=== PATIENT | female | born 1950 | race Caucasian/White ===

== ENCOUNTER 2016-11-06 06:49 | Day surgery (SDC) | payer MEDICARE ==
[~2016-11-06] VITALS: Ht 165.1 cm; Wt 83.9 kg
[~2016-11-06 06:49] MED LIST: AMLODIPINE5 MG PO; AMOXICILLIN500 MG OR; AMOXICILLIN500 MG PO; AMOXICILLIN875 MG PO; ASPIRIN EC325 MG PO; BACTRIM DS1 TAB OR; CIPRO500 MG OR; CLONIDINE0.1 MG OR; CLONIDINE0.2 MG; COREG12.5 MG PO; ECPIRIN325 MG OR; FAMCICLOVIR500 MG PO; FERROUS SULF325 M1 PO; GLIPIZIDE ER10 MG OR; GLUCOPHAGE1000 MG OR; GLUCOPHAGE500 MG OR; GLUCOTROL EXTE2.5 M1 PO; HYDRALAZINE10 M1 OR; HYDROCHLOROT25 MG PO; HYZAAR1 TA1 OR; IMODIUM A-D2 MG OR; IRON18 M1 OR; IRON325 M1 PO; IRON50 MG OR; LISINOP/HCTZ1 TA1 PO; LISINOPRIL10 MG PO; LISINOPRIL2.5 MG PO; LOPRESSOR 550 MG/TAB PO; LOPRESSOR100 MG OR; LORTAB 5; LORTAB 5 PO; MECLIZINE25 MG OR; MEDDOSEPAK PO; METFORMIN1000 MG PO; METFORMIN500 M1 OR; METFORMIN500 MG PO; METOPROL TAR25 M1 PO; METOPROLOL SUCC50 MG PO; METOPROLOL50 MG OR; MOTRIN600 MG OR; NAPROSYN500 MG OR; NAPROSYN500 MG PO; PEPTO BISMOL30 ML OR; PROMETHAZINE25 M1 RE; ROBITUSSIN AC10 ML PO; RONDEC-DM OR; SIMVASTATIN40 MG PO; TYLENOL500 MG OR; ULTRAM50 MG PO; VICODIN1 TA1 PO; ZITHROMAX250 MG PO
[2016-11-06 09:23] VITALS: BP 121/70
== END 2016-11-06 09:34 | disposition home or self-care (01) ==
LOC: ENDO 06:49
PROVIDERS: ATTEND Surgery
PROC: 0DJD8ZZ Inspection of Lower Intestinal Tract, Via Natural or Artificial Opening Endoscopic (ICD-10-PCS; principal; 2016-11-06)
DX: Z12.11 Encounter for screening for malignant neoplasm of colon (principal); K57.30 Diverticulosis of large intestine without perforation or abscess without bleeding; I10 Essential (primary) hypertension; E11.9 Type 2 diabetes mellitus without complications; Z86.73 Personal history of transient ischemic attack (TIA), and cerebral infarction without residual deficits

== ENCOUNTER 2017-05-31 20:22 | Emergency (ER) | payer MEDICARE ==
[~2017-05-31] VITALS: Ht 165.1 cm; Wt 97.0 kg
[2017-05-31 21:25] LABS: HEMATOCRIT 34.6 % (37.0-47.0); HEMOGLOBIN 10.9 g/dl (12.0-16.0); IMMATURE GRANULOCYTES 0.3 % (0.0-1.0); MEAN CELL VOLUME 82.4 fL CALC (80.0-100.0); MEAN CORPUSCULAR HGB CONC 31.5 g/L CALC (32.0-36.0); NEUT# 10.95 thou/uL (2.00-7.15); RED BLOOD COUNT 4.2 mill/uL (4.20-5.60); RED CELL DISTRI WIDTH 15.2 % (11.5-15.5)
[2017-05-31 21:27] LABS: ALBUMIN 4.4 g/dL (3.2-5.0); BILIRUBIN, TOTAL 0.9 mg/dL (0.0-1.4); CALCIUM 9.9 mg/dL (8.4-10.2); CREATININE 1.5 mg/dL (0.5-1.0); TOTAL PROTEIN 8.2 g/dL (6.3-8.2)
[2017-05-31 23:18] LABS: URINE BILIRUBIN - DIPSTICK NEGATIVE (NEGATIVE); URINE BLOOD DIPSTICK SMALL (NEGATIVE); URINE CLARITY SLIGHT CLOUDY; URINE COLOR YELLOW; URINE GLUCOSE - DIPSTICK NEGATIVE (NEGATIVE); URINE KETONE NEGATIVE (NEGATIVE); URINE LEUK ESTERASE TRACE (NEGATIVE); URINE NITRITE - DIPSTICK NEGATIVE (Negative); URINE PH 5.5 (4.5-8.0); URINE PROTEIN - DIPSTICK NEGATIVE (NEG-TRACE); URINE SPECIFIC GRAVITY 1.015; URINE UROBILINOGEN - DIPSTICK 0.2 E.U./dL (0.2)
[2017-05-31 23:25] LABS: URINE BACTERIA FEW hpf; URINE SQUAMOUS EPITHELIAL CELL FEW EPI/hpf (0-FEW)
[2017-05-31] MEDS ORDERED: PREVACID30 M1 PO (23:43)
[2017-05-31] MEDS ORDERED: ZOFRAN ODT4 MG PO (23:43)
[2017-05-31] MEDS ORDERED: CIPROFLOXACN500 MG PO (23:43)
[2017-06-01 00:10] VITALS: BP 154/78
== END 2017-06-01 00:27 | disposition home or self-care (01) ==
LOC: ED 20:22
PROVIDERS: Emergency Medicine
DX: R10.13 Epigastric pain (principal); N39.0 Urinary tract infection, site not specified; K29.70 Gastritis, unspecified, without bleeding; R11.2 Nausea with vomiting, unspecified; R50.9 Fever, unspecified; I10 Essential (primary) hypertension; Z86.73 Personal history of transient ischemic attack (TIA), and cerebral infarction without residual deficits
CPT/HCPCS: S0164

== ENCOUNTER → 2018-05-27 | Outpatient (REF) | payer MEDICARE, MEDICAID ==
[~2018-05-27] MED LIST changes: +CIPROFLOXACN500 MG PO; +PREVACID30 M1 PO; +ZOFRAN ODT4 MG PO
[2018-05-27 09:55] LABS: HEMATOCRIT 34.6 % (37.0-47.0); MEAN CELL VOLUME 91.3 fL CALC (80.0-100.0); MEAN CORPUSCULAR HGB CONC 31.8 g/L CALC (32.0-36.0); RED BLOOD COUNT 3.79 mill/uL (4.20-5.60); RED CELL DISTRI WIDTH 13.6 % (11.5-15.5)
[2018-05-27 10:22] LABS: CREATININE 1.4 mg/dL (0.5-1.0); POTASSIUM 4.7 mmol/l (3.5-5.1)
== END | disposition home or self-care (01) ==
LOC: LAB 09:04
PROVIDERS: ATTEND Internal Medicine
DX: E86.0 Dehydration (principal); R42 Dizziness and giddiness

== ENCOUNTER 2018-08-10 20:27 | Observation (INO) | payer MEDICARE, MEDICAID ==
[~2018-08-10] VITALS: Ht 165.1 cm; Wt 96.4 kg
--- NOTE | 2018-08-10 20:47 | NUR ---
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 W/P/D SKIN CLEAR BILAT BREATH SOUNDS.NO N/V NO SWEATS.
[2018-08-10 20:56] LABS: HEMATOCRIT 40.6 % (37.0-47.0); IMMATURE GRANULOCYTES 0.3 % (0.0-5.0); MEAN CELL VOLUME 88.8 fL CALC (80.0-100.0); MEAN CORPUSCULAR HGB 28.4 pG CALC (26.0-32.0); NEUT# 6.72 thou/uL (2.00-7.15); RED BLOOD COUNT 4.57 mill/uL (4.20-5.60); RED CELL DISTRI WIDTH 13.9 % (11.5-15.5)
[2018-08-10] MEDS ORDERED: METOPROL TAR100 MG PO (21:02)
[2018-08-10] MEDS ORDERED: ELIQUIS5 MG PO (21:03)
[2018-08-10] MEDS ORDERED: TRULICITY1.5 MG/0.5 IM (21:05)
[2018-08-10] MEDS ORDERED: JANUVIA50 MG PO (21:05)
[2018-08-10] MEDS ORDERED: GABAPENTIN300 M2 PO (21:06)
[2018-08-10 21:14] LABS: ALBUMIN 4.8 g/dL (3.2-5.0); ALKALINE PHOSPHATASE 84 u/l (38-126); AMYLASE 87 u/l (30-110); ANION GAP 17 (6-22 (CALC)); BILIRUBIN, TOTAL 0.6 mg/dL (0.0-1.4); BUN 18 mg/dL (8-23); BUN/CREATININE RATIO 14 (12-20 (CALC)); CARBON DIOXIDE 24 mmol/l (22-30); CHLORIDE 105 mmol/l (95-108); CREATININE 1.2 mg/dL (0.5-1.0); GFR 45 ML/MIN (>=60 (CALC)); GFR FOR AFR.AMER. 54 ML/MIN (>=60 (CALC)); LIPASE 221 u/l (23-300); POTASSIUM 3.9 mmol/l (3.5-5.1); SGOT/AST 25 u/l (9-36); SODIUM 143 mmol/l (137-146); TOTAL PROTEIN 9.2 g/dL (6.3-8.2)
[2018-08-10 21:15] LABS: URINE BILIRUBIN - DIPSTICK NEGATIVE (NEGATIVE); URINE BLOOD DIPSTICK NEGATIVE (NEGATIVE); URINE CLARITY CLEAR; URINE COLOR YELLOW; URINE GLUCOSE - DIPSTICK NEGATIVE (NEGATIVE); URINE KETONE NEGATIVE (NEGATIVE); URINE LEUK ESTERASE TRACE (Negative); URINE NITRITE - DIPSTICK NEGATIVE (Negative); URINE PH 6.5 (4.5-8.0); URINE PROTEIN - DIPSTICK 100 mg/dL (NEG-TRACE); URINE SPECIFIC GRAVITY 1.015; URINE UROBILINOGEN - DIPSTICK 0.2 E.U./dL (0.2)
[2018-08-10 21:22] LABS: URINE RBC 0-2 RBC/hpf (0-5); URINE SQUAMOUS EPITHELIAL CELL FEW EPI/hpf (0-FEW)
[2018-08-10 21:27] LABS: MYOGLOBIN 43 ng/mL (0 - 62)
--- NOTE | 2018-08-10 21:31 | NUR ---
PT SUDDENLY REVERTS TO A FIB RHYTHM RATE IN THE UPPER 130'S DR Janine CASTILLO
--- NOTE | 2018-08-10 21:54 | NUR ---
2ND REPEAT DOSE CARDIZEM 10MG IVP PER VO DR Mehta GIVEN FOR HR 137 BPM A FIB
--- NOTE | 2018-08-10 22:30 | NUR ---
W/P/D SKIN HR 115 PT IS DOZING IN THE BED
--- NOTE | 2018-08-10 23:06 | NUR ---
PHONE REPOPRT TO NURSE MCMANUS ON MS
[2018-08-10 23:12] VITALS: BP 130/75
--- NOTE | 2018-08-10 23:12 | NUR ---
PT TO FLOOR VIA STRETCHER AND WET INSPECTOR OPTICAL GLASS ESCORT IN STABLE CONDITION
--- NOTE | 2018-08-11 00:04 | NUR ---
PATIENT ADMITTED FROM ER VIA STRETCHER WITH STAFF IN ATTENDANCE. PATIENT MIN ASSIST FROM STRETCHER TO STANDING SCALE AND THEN TO BED. PATIENT IS AWAKE ALERT AND ORIENTEDX3. PATIENT IS BEING ADMITTED WITH CHEST PAIN, A-FIB RVR, HTN, UTI. PATIENT DENIES ANY PAIN AT THIS TIME. TELE MONITOR IN PLACE AND RECIEVED CALL FROM ALEXY MCMANUS IN ER THAT PATIENT HAS NOW CONVERTED TO SR 1ST DEGREE AV BLOCK-91. IV SITE TO LEFT WRIST INTACT AND ROCEPHIN 1 GM HAS FINISHED. IVF NS PATENT AND INFUSING ORDERED. SITE APPEARS HEALTHY AT THIS TIME. LUNGS ARE CLEAR, ABD IS SOFT WITH ACTIVE BS-LAST BM WAS 12/24 AM WITHOUT ANY DIFFICULTY. STATES THAT SHE IS VOIDING QS-ASYMPTOMATIC FOR UTI. NO BURNING, NO FREQUENCY. PATIENT PROVIDED WITH TURKEY SANDWICH AND DRINK. BS IN ER WAS 114. PATIENT WITH HX OF CVA WITH VERY SLIGHT RIGHT SIDE WEAKNESS. SLIGHT WORD FINDING DIFF AT TIMES. ORIENTED TO ROOM AND SURROUNDINGS. INSTRUCTED ON USE OF NURSE CALL LIGHT SYSTEM, TV REMOTE AND PHONE. SAFETY PRECAUTIONS REINFORCED. CALL LIGHT IN REACH. WILL CONT TO MONITOR.
[2018-08-11 00:41] VITALS: BP 129/78
--- NOTE | 2018-08-11 04:38 | NUR ---
PATIENT RESTING IN BED APPEARS SLEEPING AT THIS TIME. RESP ARE EVEN AND UNLABORED ON RA. TELE MONITOR IN PLACE AND SHOWS SR-81 1DEGREE AVBLOCK. IVF PATENT AND INFUSING RIGHT WRIST SITE AT 125CC/HR. CALL LIGHT IN REACH. WILL CONT TO MONITOR.
[2018-08-11 04:55] VITALS: BP 132/71
--- NOTE | 2018-08-11 07:05 | NUR ---
PT REPORT RECEIVED FROM JERROD CORTES. PT RESTING IN BED, NO S/S OF DISTRESS. CALL LIGHT IN REACH. WILL CONTINUE TO MONITOR.
--- NOTE | 2018-08-11 07:43 | NUR ---
PT C/O HEADACHE. DR. HERRERA CALLED. NEW ORDERS AT THIS TIME.
[2018-08-11 08:02] VITALS: BP 154/96
--- NOTE | 2018-08-11 08:04 | NUR ---
pt a/o x3. pt eyes are very red, perrla. speech is clear. resp even and unlabored. lung sounds clear. tele in place. pt c/o headache 5 out of 10 on pain scale. medicated w/ 650 tylenol po. breakfast porvided. bowel sounds active x4. strong radial pulses, weak pedal pulses. trace of edema to bilateral ankles. encouraged elevation when oob. #22 lw ns @100. site appears healthy. pt denies any further needs. poc discussed. safety precautions in place. call light in reach. will continue to monitor
--- NOTE | 2018-08-11 12:29 | NUR ---
D/C INSTRUCTIONS REVIEWED W/ PT. PT STATES UNDERSTANDING. IV REMOVED. CATHETER INTACT. PT DENIES ANY FURTHER QUESTIONS. GETTING DRESSED AT THIS TIME. DAUGHTER AT BEDSIDE.
--- NOTE | 2018-08-11 12:36 | NUR ---
Discharge instructions given. Patient verbalizes understanding of same. Discharged in stable condition via Wheelchair to Home with family. All belongings sent with pt.
== END 2018-08-11 12:36 | disposition home or self-care (01) ==
LOC: ED 20:27 → ED-I 21:16 → ED 22:43 → MS2 22:44
PROVIDERS: ADMIT Emergency Medicine; ATTEND Emergency Medicine
DX: R07.9 Chest pain, unspecified (principal); I48.0 Paroxysmal atrial fibrillation; I10 Essential (primary) hypertension; E11.9 Type 2 diabetes mellitus without complications; K21.9 Gastro-esophageal reflux disease without esophagitis; G47.33 Obstructive sleep apnea (adult) (pediatric); E78.5 Hyperlipidemia, unspecified; E03.9 Hypothyroidism, unspecified; Z79.01 Long term (current) use of anticoagulants; Z86.73 Personal history of transient ischemic attack (TIA), and cerebral infarction without residual deficits

== ENCOUNTER → 2018-10-08 | Outpatient (REF) | payer MEDICARE, MEDICAID ==
[~2018-10-08] MED LIST changes: +ELIQUIS5 MG PO; +GABAPENTIN300 M2 PO; +JANUVIA50 MG PO; +METOPROL TAR100 MG PO; +TRULICITY1.5 MG/0.5 IM
[2018-10-08 10:05] LABS: CREATININE 1.3 mg/dL (0.5-1.0)
[2018-10-08 10:24] LABS: POTASSIUM 4.8 mmol/l (3.5-5.1)
== END | disposition home or self-care (01) ==
LOC: LAB 09:16
PROVIDERS: ATTEND Nurse Practitioner Family
DX: E11.42 Type 2 diabetes mellitus with diabetic polyneuropathy (principal)

== ENCOUNTER 2020-10-04 11:17 | Observation (INO) | payer MEDICARE, MEDICAID ==
[2020-10-04] VITALS (14 sets, daily range): BP systolic 111–196; BP diastolic 56–89
[~2020-10-04] VITALS: Ht 165.1 cm; Wt 95.9 kg
[~2020-10-04 11:17] MED LIST changes: +IRON PO; +LIPITOR10 M1 PO; +LOSARTAN POTASS50 MG PO; +NEURONTIN100 MG PO; +NORVASC5 M1 PO; +PROLIA60 MG/ML SC
[2020-10-04 17:26] LABS: HEMATOCRIT 39.3 % (37.0-47.0); HEMOGLOBIN 12.4 g/dl (12.0-16.0); IMMATURE GRANULOCYTES 0.2 % (0.0-5.0); MEAN CELL VOLUME 87.9 fL CALC (80.0-100.0); MEAN CORPUSCULAR HGB 27.7 pG CALC (26.0-32.0); MEAN CORPUSCULAR HGB CONC 31.6 g/dL CAL (32.0-36.0); NEUT# 6.48 thou/uL (2.00-7.15); RED BLOOD COUNT 4.47 mill/uL (4.20-5.60); RED CELL DISTRI WIDTH 15.5 % (11.5-15.5)
[2020-10-04 17:43] LABS: ALBUMIN 4.3 g/dL (3.2-5.0); ALKALINE PHOSPHATASE 69 u/l (38-126); ANION GAP 15 (6-22 (CALC)); BUN 15 mg/dL (8-23); BUN/CREATININE RATIO 12 (12-20 (CALC)); CARBON DIOXIDE 21 mmol/l (22-30); CHLORIDE 106 mmol/l (95-108); CREATININE 1.2 mg/dL (0.5-1.0); GFR 45 ML/MIN (>=60 (CALC)); GFR FOR AFR.AMER. 54 ML/MIN (>=60 (CALC)); MAGNESIUM 1.9 mg/dL (1.6-2.3); POTASSIUM 4.1 mmol/l (3.5-5.1); SGOT/AST 26 u/l (9-36); SODIUM 138 mmol/l (137-146)
[2020-10-04 17:50] LABS: BILIRUBIN, TOTAL 0.7 mg/dL (0.0-1.4)
[2020-10-05] VITALS (11 sets, daily range): BP systolic 99–148; BP diastolic 51–80
[2020-10-05] MEDS ORDERED: METOPROLOL100 M1 PO (10:37)
== END 2020-10-05 11:10 | disposition home or self-care (01) ==
LOC: NUCMED 11:17 → STRESS 11:17 → NUCMED 13:15 → ICU 15:35
PROVIDERS: ADMIT Internal Medicine; ATTEND Internal Medicine
DX: I48.0 Paroxysmal atrial fibrillation (principal); I12.9 Hypertensive chronic kidney disease with stage 1 through stage 4 chronic kidney disease, or unspecified chronic kidney disease; E11.22 Type 2 diabetes mellitus with diabetic chronic kidney disease; N18.30 Chronic kidney disease, stage 3 unspecified; I25.10 Atherosclerotic heart disease of native coronary artery without angina pectoris; E78.5 Hyperlipidemia, unspecified; D63.1 Anemia in chronic kidney disease; G47.30 Sleep apnea, unspecified; H40.9 Unspecified glaucoma; Z86.73 Personal history of transient ischemic attack (TIA), and cerebral infarction without residual deficits; Z79.01 Long term (current) use of anticoagulants; Z20.822 Contact with and (suspected) exposure to COVID-19
CPT/HCPCS: A9502; J0706; J2785

== ENCOUNTER 2021-03-01 07:17 | Day surgery (SDC) | payer MEDICARE, MEDICAID ==
[~2021-03-01] VITALS: Ht 165.1 cm; Wt 94.8 kg
[~2021-03-01 07:17] MED LIST changes: +ALPHAGAN P0.1 % OU; +METOPROLOL100 M1 PO; +VITAMIN D1000 UNIT PO
[2021-03-01 09:21] VITALS: BP 125/56
--- NOTE | 2021-03-01 15:29 | NUR ---
CALLED PATIENT STATES DOING WELL, AT HOME RESTING, AND VOICING NO CONCERNS AT TIME OF CALL. PATIENT TO FOLLOW UP IN OFFICE TO DISCUSS BX RESULTS AND PROCEDURE FINDINGS WITH MD.
--- NOTE | 2021-03-09 09:22 | NUR ---
PER PHYSICIAN, PATIENT NOTIFED OF RESULTS FROM PROCEDURE, PATIENT AGREED WITH INFORMATION PROVIDED, VERBALIZED NO CONCERNS AT TIME OF VISIT, STATES HAS AN APPOINTMENT WITH PRIMARY CARE ON 03/13/21, WILL FOLLOW UP WITH PCP. RESULTS FORWARDED TO PCP FOR CONTINUITY OF CARE.
== END 2021-03-01 09:26 | disposition home or self-care (01) ==
LOC: ENDO 07:17 → ORM 11:00
PROVIDERS: ATTEND Surgery
PROC: 0DJD8ZZ Inspection of Lower Intestinal Tract, Via Natural or Artificial Opening Endoscopic (ICD-10-PCS; principal; 2021-03-01)
PROC: 0DB78ZX Excision of Stomach, Pylorus, Via Natural or Artificial Opening Endoscopic, Diagnostic (ICD-10-PCS; 2021-03-01)
DX: K57.31 Diverticulosis of large intestine without perforation or abscess with bleeding (principal); K64.4 Residual hemorrhoidal skin tags; K64.8 Other hemorrhoids; K29.61 Other gastritis with bleeding; K31.7 Polyp of stomach and duodenum; K50.10 Crohn's disease of large intestine without complications; K44.9 Diaphragmatic hernia without obstruction or gangrene; E11.9 Type 2 diabetes mellitus without complications; I10 Essential (primary) hypertension; Z79.84 Long term (current) use of oral hypoglycemic drugs

== ENCOUNTER 2021-11-20 10:00 | Day surgery (SDC) | payer MEDICARE, MEDICAID ==
[~2021-11-20] VITALS: Ht 165.1 cm; Wt 96.2 kg
[~2021-11-20 10:00] MED LIST changes: +DIOVAN80 MG PO; +PROTONIX20 M1 PO; +TRESIBA100 UNIT/M SC; +TRULICITY0.75 MG/0. SC
[2021-11-20] MEDS ORDERED: PERCOCET 5/321 COMBO PO (11:30)
[2021-11-20 12:49] VITALS: BP 156/66
== END 2021-11-20 12:55 | disposition home or self-care (01) ==
LOC: ORM 10:00
PROVIDERS: ATTEND Surgery
PROC: 0DJD8ZZ Inspection of Lower Intestinal Tract, Via Natural or Artificial Opening Endoscopic (ICD-10-PCS; principal; 2021-11-20)
PROC: 06BY3ZC Excision of Hemorrhoidal Plexus, Percutaneous Approach (ICD-10-PCS; 2021-11-20)
DX: K64.8 Other hemorrhoids (principal); K64.4 Residual hemorrhoidal skin tags; K57.30 Diverticulosis of large intestine without perforation or abscess without bleeding; D64.9 Anemia, unspecified; I10 Essential (primary) hypertension; E11.9 Type 2 diabetes mellitus without complications; Z86.73 Personal history of transient ischemic attack (TIA), and cerebral infarction without residual deficits; Z79.4 Long term (current) use of insulin; Z79.01 Long term (current) use of anticoagulants
CPT/HCPCS: C9290

== ENCOUNTER 2024-02-09 19:04 | Observation (INO) | payer MEDICARE ==
[2024-02-09] VITALS (8 sets, daily range): BP systolic 145–178; BP diastolic 70–91
[~2024-02-09] VITALS: Ht 165.1 cm; Wt 77.8 kg
[~2024-02-09 19:04] MED LIST changes: +CORICIDIN HBP DAY & PO; +IBUPROFEN600 MG PO; +PAXLOVID PO; +PERCOCET 5/321 COMBO PO
--- NOTE | 2024-02-09 19:10 | NUR ---
PATIENT TO TRIAGE ROOM, DAUGHTER AT BEDSIDE.
[2024-02-09] MEDS ORDERED: MOUNJARO10 MG SC (19:19)
[2024-02-09] MEDS ORDERED: JARDIANCE25 MG PO (19:20)
--- NOTE | 2024-02-09 19:27 | NUR ---
PATIENT TO ROOM 13, PRIMARY NURSE AND MD NOTIFIED OF PATIENT STATUS
[2024-02-09] MEDS ORDERED: SODIUM CHLORIDE 0.9% 1,000 ML IV ONE (19:35)
--- NOTE | 2024-02-09 19:55 | NUR ---
IV ACESSED OBTAINED LABS COLLECTED, IVF RUNNING PT CONNECTED TO CONTINUOUS MONITORING, AWAITING ALL FURTHER RESULTS, PT VOICES UNDERSTANDIMG WITH NO FURTHER QUESTIONS AT THIS TIME, PT FAMILY AT BEDSIDE.
[2024-02-09 20:07] LABS: BASO% 0.5 % (0-3); EOS% 0.8 % (0-8); HEMATOCRIT 45.5 % (37.0-47.0); HEMOGLOBIN 14.1 g/dl (12.0-16.0); IMMATURE GRANULOCYTES 0.1 % (0.0-5.0); LYMPH% 8.4 % (15-41); MEAN CORPUSCULAR HGB 26.4 pG CALC (26.0-32.0); MONO% 8.6 % (2-13); NEUT# 10.85 thou/uL (2.00-7.15); NEUT% 81.6 % (42-76); RED BLOOD COUNT 5.35 mill/uL (4.20-5.60)
[2024-02-09 20:25] LABS: ACT PARTIAL THROMBO TIME 33.6 SECONDS (20.0-32.5); INTERNATIONAL NORMALIZED RATIO 1.1 RATIO (0.7-1.3); PROTHROMBIN TIME 10.4 SECONDS (9.0-12.5)
[2024-02-09 20:32] LABS: ALBUMIN 4.3 g/dL (3.2-5.0); BILIRUBIN, TOTAL 1.5 mg/dL (0.02-1.3); CREATININE 1.5 mg/dL (0.5-1.0); TOTAL PROTEIN 8.7 g/dL (6.3-8.2)
[2024-02-09] MEDS ORDERED: Zaleplon 5 MG/CAP PO PRN (20:55)
[2024-02-09] MEDS ORDERED: ACETAMINOPHEN 325 MG/TAB PO PRN (20:55)
[2024-02-09] MEDS ORDERED: MAGNESIUM HYDROXIDE 30 ML UDC PO PRN (20:55)
--- NOTE | 2024-02-09 20:55 | NUR ---
PT UPDATED ON POC, AWAITIMNG ROOM ASSIGNMENT. PT VOICES NO COMPLAINTS OF PAIN OR DISCOMFORT.
[2024-02-09] MEDS ORDERED: hydrALAZINE HCL 20 MG/ML VIAL(1 ML) IV PRN (21:00)
[2024-02-09] MEDS ORDERED: GABAPENTIN 100 MG/CAP PO SCH (21:00)
[2024-02-09] MEDS ORDERED: PANTOPRAZOLE SODIUM Sesquihydr 40 MG/TAB PO SCH (21:00)
[2024-02-09] MEDS ORDERED: SODIUM CHLORIDE 0.9% 1,000 ML IV SCH (21:00)
--- NOTE | 2024-02-09 21:45 | NUR ---
PT MEDICATED PER MD ORDERS, PT UPDATED ON POC, AWAITING CALL BACK FROM Chanyouji TO GIVE REPORT. PT VERBALIZES UNDERSTANDING NO FURTHER QUESTIONS OR CONCERNS. VSS, CALL LIGHT WITHIN REACH.
--- NOTE | 2024-02-09 21:55 | NUR ---
PT REPORT GIVEN TO TIAGO ELDER.
--- NOTE | 2024-02-09 22:00 | NUR ---
PT TRANSPORTED TO [facility] VIA WC, NURSE/BRANCH SALES AND SERVICE REPRESENTATIVE AT BEDSIDE PT AMB TO BED VOICES APPRECIATION OF CRARE WITH NO FURTHER QUESTIONS OR CONCERS.
--- NOTE | 2024-02-09 22:02 | NUR ---
PT ARRIVED TO [facility] ROOM 261 VIA WHEELCHAIR WAS ABLE TO WALK INDEPENDENTLY WITHOUT ASSISTANCE TO BED NO DISTRESS NOTED. ASSESSMENT AND ADMISSION DONE. PT STATED LIVING ALONE. IV SITE FLUSHED WORKING PROPERLY IV FLUIDS RESTARTED AT 80ML/HR. SKIN INTACT NO EDEMA NO TELE MONITOR. LUNGS CLEAR BOWEL SOUNDS ACTIVE. PT STATED HAVING NO PAIN AT THIS TIME. NURSE WENT OVER SAFETY PRECAUTIONS AND HOW TO USE CALL LIGHT AND PLAN OF CARE. CALL LIGHT WITHIN REACH. PT STATED NOT HAVING ANY FALLS IN THE LAS T 3 MONTHS.
[2024-02-10] VITALS (7 sets, daily range): BP systolic 116–169; BP diastolic 68–94
--- NOTE | 2024-02-10 04:00 | NUR ---
PT RESTING NO DISTRESS NOTED ON EXAM. CALL LIGHT WITHIN REACH. PLAN OF CARE ONGOING.
[2024-02-10 05:51] LABS: BASO% 1.2 % (0-3); EOS% 2.7 % (0-8); HEMATOCRIT 39.9 % (37.0-47.0); HEMOGLOBIN 12.6 g/dl (12.0-16.0); IMMATURE GRANULOCYTES 0.2 % (0.0-5.0); LYMPH% 14.2 % (15-41); MEAN CELL VOLUME 84.4 fL CALC (80.0-100.0); MEAN CORPUSCULAR HGB 26.6 pG CALC (26.0-32.0); MEAN CORPUSCULAR HGB CONC 31.6 g/dL CAL (32.0-36.0); NEUT# 6.65 thou/uL (2.00-7.15); NEUT% 69.7 % (42-76); RED BLOOD COUNT 4.73 mill/uL (4.20-5.60)
[2024-02-10 06:10] LABS: BILIRUBIN, TOTAL 1.3 mg/dL (0.02-1.3); CREATININE 1.1 mg/dL (0.5-1.0)
[2024-02-10 06:11] LABS: ALBUMIN 3.2 g/dL (3.2-5.0); POTASSIUM 5.5 mmol/l (3.5-5.1); TOTAL PROTEIN 6.6 g/dL (6.3-8.2)
--- NOTE | 2024-02-10 07:28 | NUR ---
PATIENT RESTING IN BED; NO S/S OF DISTRESS NOTICED; TEE LAYINIG IN SEMI [place] POSTION; IV SITE CLEAN AND INTACT, NS RUNNING @80; MEDICATION REVIWED; BSC NEXT TO BED; MEDICATION REVIEWED; PATIENT REPONDS TO VERBAL COMPAND; CALL LIGHT WITHIN REACH,VERBALIZED UNDERSTANDING ON HOW TO USE,PERSONAL ITEMS WITHIN REACH, BED IN LOWEST POSTION
[2024-02-10] MEDS ORDERED: METOPROLOL SUCCINATE 100 MG/TAB PO SCH (09:00)
[2024-02-10] MEDS ORDERED: LOSARTAN Potassium 50 MG/TAB PO SCH (09:00)
[2024-02-10] MEDS ORDERED: SODIUM ZIRCONIUM CYCLOSILICATE 10 GM PAK PO SCH (09:00)
--- NOTE | 2024-02-10 12:00 | NUR ---
TEE A/O X3; ROOM AIR; BREATHING UNLABORED AND EVEN; DENIED ANY N/D/V AT THIS TIME; DENIED ANY PAIN; DENIED NEEDING ANYTHING; IV SITE CLEAN AND INTACT RUNNING WITH NS @80; DENIED ANY BLEEDING SINCE 02/09/24; NO S/S OF DISTRESS; AWAITING DISCHARGE INFORMATION; TELE LEADS ARE ATTACHED AND WORKING WITH NO ISSUES; CALL LIGHT WIHIN REACH,VERBALIZED UNDERSTANING ONM HOW TO USE, PERSONAL ITEMS WITHIN REACH, BED INLOWEST POSTION
--- NOTE | 2024-02-10 13:19 | NUR ---
IV site discontinued, cath intact. No edema , no redness, voices no discomfort. Discharge instructions given. Patient verbalizes understanding of same. Discharged in stable condition via Wheelchair to Home with *Other. All belongings sent with pt.
[2024-02-10] MEDS ORDERED: ATORVASTATIN CALCIUM 10 MG/TAB PO SCH (21:00)
== END 2024-02-10 13:12 | disposition home or self-care (01) ==
LOC: ED 19:04 → ED-I 19:53 → ED 20:48 → MS2 20:49
PROVIDERS: Family Medicine; Nurse Practitioner Family; ADMIT Student in an Organized Health Care Education/Training Program; ATTEND Student in an Organized Health Care Education/Training Program
DX: K60.2 Anal fissure, unspecified (principal); K59.00 Constipation, unspecified; N17.9 Acute kidney failure, unspecified; E87.5 Hyperkalemia; I12.9 Hypertensive chronic kidney disease with stage 1 through stage 4 chronic kidney disease, or unspecified chronic kidney disease; E11.22 Type 2 diabetes mellitus with diabetic chronic kidney disease; N18.30 Chronic kidney disease, stage 3 unspecified; I25.10 Atherosclerotic heart disease of native coronary artery without angina pectoris; I48.0 Paroxysmal atrial fibrillation; E78.5 Hyperlipidemia, unspecified; H40.9 Unspecified glaucoma; Z86.73 Personal history of transient ischemic attack (TIA), and cerebral infarction without residual deficits; Z79.01 Long term (current) use of anticoagulants; Z79.85 Long-term (current) use of injectable non-insulin antidiabetic drugs